=== PATIENT | female | born 1935 | race Caucasian/White ===

== ENCOUNTER 2017-09-23 11:48 | Emergency (ER) | payer OTHER ==
[~2017-09-23] VITALS: Ht 154.9 cm; Wt 75.6 kg
[2017-09-23 11:56] VITALS: BP 122/57; PULSE 54; RESP 18; TEMP 97.9; O2SAT 96
[2017-09-23] MEDS ORDERED: SODIUM CHLOR 0.9% 1000 ML INJ 1,000 ML IV ONE (12:15)
[2017-09-23] MEDS ORDERED: SODIUM CHLORIDE 0.9% FLUSH 10 ML FLUSH IVF PRN (12:15)
[2017-09-23] MEDS ORDERED: ATOR20TA15 PO (12:25)
[2017-09-23] MEDS ORDERED: PROP40TA3 PO (12:25)
[2017-09-23] MEDS ORDERED: AMLO10TA2 PO (12:25)
[2017-09-23] MEDS ORDERED: METF500T PO (12:25)
[2017-09-23] MEDS ORDERED: ESCI10TA PO (12:25)
[2017-09-23] MEDS ORDERED: GABA600T PO (12:25)
[2017-09-23] MEDS ORDERED: LISI10TA3 PO (12:25)
[2017-09-23] MEDS ORDERED: LABE200T2 PO (12:25)
[2017-09-23] MEDS ORDERED: ALEN1TAB48 PO (12:25)
[2017-09-23] MEDS ORDERED: ASPI1TAB57 PO (12:26)
[2017-09-23] MEDS ORDERED: BIOTCAP PO (12:26)
[2017-09-23] MEDS ORDERED: VITA100064 PO (12:26)
[2017-09-23 12:30] VITALS: RESP 16; O2SAT 93
--- NOTE | 2017-09-23 12:33 | PD ---
HPI Chief Complaint: Dizziness Time Seen by Provider: 12:05 Travel History International Travel<30 days: No Contact w/Intl Traveler<30days: No Traveled to known affect area: No History of Present Illness HPI The patient is a 82-year-old female who presents to the emergency department via private vehicle for dizziness. The patient has an intermittent history of dizziness for the last 2 weeks. The patient states she will drift to the left, had difficulty keeping her balance, and has a hold onto objects to stop from falling. The patient does note it is intermittent, but she will always drift to left occasionally has difficulty walking in a straight line secondary to her dizziness and drift. She denies any focal deficits of the upper or lower extremities, denies any vision changes, dysarthria, numbness, tingling, or headache. The patient denies any previous history of CVA or TIA. She denies any history of CAD or PVD. She does have a history of hypertension, hyperlipidemia, and diabetes. She denies any tobacco use. The patient's symptoms are moderate, occasionally worse when ambulating, and intermittent. PFSH Past Medical History High Cholesterol: Yes Diabetes: Yes Patient Takes Glucophage: Yes Diminished Hearing: No Hypertension: Yes Tetanus Vaccination: Unknown ?: Not Past Surgical History Hysterectomy: Yes Other Surgery: Yes (LUMBAR AND CERVICAL LAMINECTOMY) Social History Alcohol Use: No Tobacco Use: No Substance Use: No Allergies-Medications (Allergen,Severity, Reaction): Coded Allergies: No Known Allergies (Unverified , 09/23/17) Reported Meds & Prescriptions Reported Meds & Active Scripts Active Reported Vitamin D3 (Cholecalciferol) 1,000 Unit Tab 1,000 Units PO DAILY Biotin 5 Mg Cap Unknown Dose PO DAILY Aspirin 81 (Aspirin) 81 Mg Tabdr 81 Mg PO DAILY Alendronate (Alendronate Sodium) 70 Mg Tab 70 Mg PO Q7D Lisinopril 10 Mg Tab 10 Mg PO DAILY Escitalopram (Escitalopram Oxalate) 10 Mg Tab 10 Mg PO DAILY Amlodipine (Amlodipine Besylate) 10 Mg Tab 10 Mg PO DAILY Propranolol (Propranolol HCl) 40 Mg Tab 40 Mg PO Q12HR Gabapentin 600 Mg Tab 600 Mg PO BID Metformin (Metformin HCl) 500 Mg Tab 500 Mg PO DAILY With a meal Atorvastatin (Atorvastatin Calcium) 20 Mg Tab 20 Mg PO HS Labetalol (Labetalol HCl) 200 Mg Tab 200 Mg PO BID Review of Systems Except as stated in HPI: all other systems reviewed are Neg General / Constitutional: No: Fever HENT: Positive: Lightheadedness, No: Vertigo Cardiovascular: No: Chest Pain or Discomfort Respiratory: No: Shortness of Breath Gastrointestinal: No: Nausea, Vomiting Neurologic: Positive: Dizziness, Coordination Problem, Ataxia, No: Focal Abnormalities, Headache, Change in Mentation, Slurred Speech, Paresthesia, Sensory Disturbance Physical Exam Narrative GENERAL: Awake, alert, pleasant 82-year-old female who appears her stated age and is in no acute respiratory distress. SKIN: Focused skin assessment warm/dry. HEAD: Atraumatic. Normocephalic. EYES: Pupils equal and round. Pupils are 3 mm bilateral and reactive. EOMs are intact. Patient is able to see fingers at a distance of 2 feet without difficulty. ENT: No nasal bleeding or discharge. Mucous membranes pink and moist. NECK: Trachea midline. No JVD. CARDIOVASCULAR: Regular, bradycardic with a heart rate in the 50s. No audible murmur. RESPIRATORY: No accessory muscle use. Clear to auscultation. Breath sounds equal bilaterally. GASTROINTESTINAL: Abdomen soft, non-tender, nondistended. No rebound tenderness. MUSCULOSKELETAL: No obvious deformities. No clubbing. No cyanosis. No edema. NEUROLOGICAL: Awake and alert. No obvious cranial nerve deficits. Motor grossly within normal limits. Normal speech. No drift of the upper or lower extremities. Finger to nose is normal. [id number] is normal. Patient's symptoms see fingers at a distance of 2 feet without difficulty. She is alert and oriented 3. NIHSS 0. PSYCHIATRIC: Appropriate mood and affect; insight and judgment normal. Data Data Last Documented VS Vital Signs Date Time Temp Pulse Resp B/P (MAP) Pulse Ox O2 Delivery O2 Flow Rate FiO2 09/23/17 14:00 50 16 114/58 (76) 96 Room Air 09/23/17 12:39 97.9 Orders Orders Electrocardiogram (09/23/17 12:15) Complete Blood Count With Diff (09/23/17 12:15) Comprehensive Metabolic Panel (09/23/17 12:15) Magnesium (Mg) (09/23/17 12:15) Ct Brain W/O Iv Contrast(Rout) (09/23/17 12:15) Ecg Monitoring (09/23/17 12:15) Iv Access Insert/Monitor (09/23/17 12:15) Oximetry (09/23/17 12:15) Sodium Chloride 0.9% Flush (Ns Flush) (09/23/17 12:15) Sodium Chlor 0.9% 1000 Ml Inj (Ns 1000 M (09/23/17 12:15) Mri Brain W/O Contrast (09/23/17 ) Clopidogrel (Plavix) (09/23/17 16:30) Labs Laboratory Tests Test 09/23/17 12:30 White Blood Count 8.7 TH/MM3 Red Blood Count 3.63 MIL/MM3 Hemoglobin 10.8 GM/DL Hematocrit 32.8 % Mean Corpuscular Volume 90.4 FL Mean Corpuscular Hemoglobin 29.8 PG Mean Corpuscular Hemoglobin Concent 33.0 % Red Cell Distribution Width 12.8 % Platelet Count 185 TH/MM3 Mean Platelet Volume 7.7 FL Neutrophils (%) (Auto) 66.4 % Lymphocytes (%) (Auto) 22.3 % Monocytes (%) (Auto) 6.8 % Eosinophils (%) (Auto) 1.3 % Basophils (%) (Auto) 3.2 % Neutrophils # (Auto) 5.8 TH/MM3 Lymphocytes # (Auto) 1.9 TH/MM3 Monocytes # (Auto) 0.6 TH/MM3 Eosinophils # (Auto) 0.1 TH/MM3 Basophils # (Auto) 0.3 TH/MM3 CBC Comment AUTO DIFF Differential Comment AUTO DIFF CONFIRMED Blood Urea Nitrogen 35 MG/DL Creatinine 1.70 MG/DL Random Glucose 137 MG/DL Total Protein 6.5 GM/DL Albumin 3.6 GM/DL Calcium Level 8.3 MG/DL Magnesium Level 2.2 MG/DL Alkaline Phosphatase 78 U/L Aspartate Amino Transf (AST/SGOT) 15 U/L Alanine Aminotransferase (ALT/SGPT) 30 U/L Total Bilirubin 0.5 MG/DL Sodium Level 141 MEQ/L Potassium Level 4.4 MEQ/L Chloride Level 109 MEQ/L Carbon Dioxide Level 25.0 MEQ/L Anion Gap 7 MEQ/L Estimat Glomerular Filtration Rate 29 ML/MIN [facility] Medical Decision Making Medical Screen Exam Complete: Yes Emergency Medical Condition: Yes Medical Record Reviewed: Yes Interpretation(s) EKG reveals sinus bradycardia with a heart rate of 49. No ischemic changes noted. Laboratory Tests Test 09/23/17 12:30 White Blood Count 8.7 TH/MM3 Red Blood Count 3.63 MIL/MM3 Hemoglobin 10.8 GM/DL Hematocrit 32.8 % Mean Corpuscular Volume 90.4 FL Mean Corpuscular Hemoglobin 29.8 PG Mean Corpuscular Hemoglobin Concent 33.0 % Red Cell Distribution Width 12.8 % Platelet Count 185 TH/MM3 Mean Platelet Volume 7.7 FL Neutrophils (%) (Auto) 66.4 % Lymphocytes (%) (Auto) 22.3 % Monocytes (%) (Auto) 6.8 % Eosinophils (%) (Auto) 1.3 % Basophils (%) (Auto) 3.2 % Neutrophils # (Auto) 5.8 TH/MM3 Lymphocytes # (Auto) 1.9 TH/MM3 Monocytes # (Auto) 0.6 TH/MM3 Eosinophils # (Auto) 0.1 TH/MM3 Basophils # (Auto) 0.3 TH/MM3 CBC Comment AUTO DIFF Differential Comment AUTO DIFF CONFIRMED Blood Urea Nitrogen 35 MG/DL Creatinine 1.70 MG/DL Random Glucose 137 MG/DL Total Protein 6.5 GM/DL Albumin 3.6 GM/DL Calcium Level 8.3 MG/DL Magnesium Level 2.2 MG/DL Alkaline Phosphatase 78 U/L Aspartate Amino Transf (AST/SGOT) 15 U/L Alanine Aminotransferase (ALT/SGPT) 30 U/L Total Bilirubin 0.5 MG/DL Sodium Level 141 MEQ/L Potassium Level 4.4 MEQ/L Chloride Level 109 MEQ/L Carbon Dioxide Level 25.0 MEQ/L Anion Gap 7 MEQ/L Estimat Glomerular Filtration Rate 29 ML/MIN Last Impressions Head CT 09/23/17 1215 Signed Impressions: Service Date/Time: September 12:41 - CONCLUSION: 1. No acute intracranial abnormality. 2. Minimal subcortical white matter small vessel ischemic changes within the right frontal lobe. Goldy Dutton MD MRI the brain without contrast reveals chronic ischemic small vessel vasculopathy. Small central area of restricted diffusion in the midbrain of uncertain etiology, likely artifactual. Follow-up studies may be warranted. Differential Diagnosis Differential diagnosis includes CVA, TIA, cerebellar infarct, intracranial hemorrhage, hyponatremia, Parkinson's disease, medication side effect, labyrinthitis, Mnire's disease. Narrative Course IV was established, labs are drawn and sent, and the patient was placed on cardiac telemetry monitoring and continuous pulse oximetry monitoring. EKG was ordered and interpreted. Stat CT brain was ordered to rule out hemorrhage. MRI the brain was ordered to rule out cerebellar infarct. Laboratory evaluation is essentially unremarkable. CT the brain is negative for acute hemorrhage. MRI the brain without contrast reveals chronic ischemic small vessel vasculopathy a small central area of restricted diffusion in the midbrain of uncertain etiology, likely artifactual. Follow-up studies may be warranted. Therefore, I'll call was placed to the on-call neurologist, Dr. Jose Disla, at 3:44 PM. Diagnosis Primary Impression: Ataxia Referrals: Jose Disla PhD MD Call in the morning to be seen by Dr. Jose Disla in the [facility] office tomorrow , call [phone], addresses [address] [facility] Patient Instructions: General Instructions Additional Instructions: Plavix as directed. Follow-up with Dr. Disla in the morning at his [facility] office, call [phone]. Please provide the patient a copy of her MRI results, CT results, and lab results at discharge. Med/Other Pt SpecificInfo: Prescription(s) given Scripts Clopidogrel (Plavix) 75 Mg Tab 75 MG PO DAILY for Blood Clot Prevention, #30 TAB 0 Refills Prov: Yordan Zarate MD 09/23/17 Disposition: 01 DISCHARGE HOME Condition: Stable Yordan Zarate MD Sep 23, 2017 12:33
[2017-09-23 12:39] VITALS: PULSE 54; RESP 16; TEMP 97.9; O2SAT 96
[2017-09-23 12:42] LABS: AUTOMATED NEUTROPHIL # 5.8 TH/MM3 (1.8-7.7); BASOPHIL # 0.3 TH/MM3 (0-0.2); BASOPHIL % 3.2 % (0.0-2.0); EOSINOPHIL # 0.1 TH/MM3 (0-0.4); EOSINOPHIL % 1.3 % (0.0-4.0); HEMATOCRIT 32.8 % (35.0-46.0); LYMPH % 22.3 % (9.0-44.0); LYMPHOCYTE # 1.9 TH/MM3 (1.0-4.8); MEAN CELL VOLUME 90.4 FL (80.0-100.0); MEAN CORPUSCULAR HEMOGLOBIN 29.8 PG (27.0-34.0); MONO % 6.8 % (0.0-8.0); NEUT % 66.4 % (16.0-70.0); PLATELET COUNT 185 TH/MM3 (150-450); RED BLOOD COUNT 3.63 MIL/MM3 (4.00-5.30); RED CELL DISTRIBUTION WIDTH 12.8 % (11.6-17.2); WHITE BLOOD COUNT 8.7 TH/MM3 (4.0-11.0)
[2017-09-23 12:45] LABS: HEMO FLAGS AUTO DIFF
[2017-09-23 12:55] VITALS: BP 123/64; PULSE 51; RESP 16; O2SAT 94
[2017-09-23 12:57] LABS: CHLORIDE 109 MEQ/L (98-107); POTASSIUM 4.4 MEQ/L (3.5-5.1); SODIUM (NA) 141 MEQ/L (136-145)
[2017-09-23 13:01] LABS: ANION GAP 7 MEQ/L (5-15); BLOOD UREA NITROGEN 35 MG/DL (7-18); MAGNESIUM 2.2 MG/DL (1.5-2.5)
[2017-09-23 13:04] LABS: ALT (GPT) 30 U/L (10-53); AST (GOT) 15 U/L (15-37); GLOMERULAR FILTRATION RATE 29 ML/MIN (>89)
[2017-09-23 13:05] LABS: TOTAL BILIRUBIN ADULT 0.5 MG/DL (0.2-1.0)
[2017-09-23 13:07] LABS: ALKALINE PHOSPHATASE 78 U/L (45-117)
--- NOTE | 2017-09-23 13:29 | RADRPT ---
EXAM DATE/TIME: 09/23/2017 12:41 [facility] COMPARISON: No previous studies available for comparison. INDICATIONS : Dizziness x 2 weeks. Cephalgia. RADIATION DOSE: 60.56 CTDIvol (mGy) MEDICAL HISTORY : Hypertension. Diabetes mellitus type 2. SURGICAL HISTORY : Hysterectomy. ENCOUNTER: Initial ACUITY: 2 weeks PAIN SCALE: 7/10 LOCATION: cranial TECHNIQUE: Multiple contiguous axial images were obtained of the head. Using automated exposure control and adj ustment of the mA and/or kV according to patient size, radiation dose was kept as low as reasonably a chievable to obtain optimal diagnostic quality images. DICOM format image data is available electro nically for review and comparison. FINDINGS: CEREBRUM: The ventricles are normal for age. No evidence of midline shift, mass lesion, hemorrhage or acute in farction. Minimal subcortical white matter small vessel ischemic changes within the right frontal lo be. No extra-axial fluid collections are seen. POSTERIOR FOSSA: The cerebellum and brainstem are intact. The 4th ventricle is midline. The cerebellopontine angle i s unremarkable. EXTRACRANIAL: The visualized portion of the orbits is intact. SKULL: The calvaria is intact. No evidence of skull fracture. CONCLUSION: 1. No acute intracranial abnormality. 2. Minimal subcortical white matter small vessel ischemic changes within the right frontal lobe. Goldy Dutton MD on September 23, 2017 at 13:25 Board Certified Radiologist. This report was verified electronically.
[2017-09-23 13:54] LABS: SCAN/DIFF AUTO DIFF CONFIRMED
[2017-09-23 14:00] VITALS: BP 114/58; PULSE 50; RESP 16; O2SAT 96
--- NOTE | 2017-09-23 15:42 | RADRPT ---
EXAM DATE/TIME: 09/23/2017 15:33 [facility] COMPARISON: CT BRAIN W/O CONTRAST, September 23, 2017, 12:41. INDICATIONS : CVA. Dizziness and disorientation. MEDICAL HISTORY : Hypertension. Diabetes mellitus type 2. SURGICAL HISTORY : Hysterectomy. Tonsillectomy. Laminectomy. ENCOUNTER: Initial ACUITY: 1 day PAIN SCORE: 0/10 LOCATION: Head. TECHNIQUE: Multiplanar, multisequence MRI of the brain was performed without contrast. FINDINGS: CEREBRUM: The ventricles are normal for age. No evidence of midline shift, mass lesion, hemorrhage or acute in farction. No extraaxial fluid collections are seen. The pituitary gland and suprasellar cistern are normal in configuration. WHITE MATTER: Scattered foci of bright T2 signal abnormalities are seen in the white matter. POSTERIOR FOSSA: The cerebellum and brainstem are intact. The 4th ventricle is midline. The cerebellopontine angle is unremarkable. The cerebellar tonsils are normal in position. DIFFUSION IMAGING: Small central restricted diffusion seen within the midbrain, of uncertain etiology. EXTRACRANIAL: The visualized portions of the orbits and paranasal sinuses are unremarkable. CONCLUSION: 1. Chronic ischemic small vessel vasculopathy. 2. Small central area of restricted diffusion in the midbrain of uncertain etiology, likely artifactu al. Followup studies may be warranted. Poncho Kan MD on September 23, 2017 at 15:34 Board Certified Radiologist. This report was verified electronically.
[2017-09-23] MEDS ORDERED: CLOPIDOGREL 75 MG TAB PO ONE (16:30)
[2017-09-23] MEDS ORDERED: PLAV75TA29 PO (16:41)
[2017-09-23 16:50] VITALS: BP 108/71
--- NOTE | 2017-09-24 12:13 | EKG ---
Date Performed: 09/23/2017 Time Performed: 12:26:54 PTAGE: 82 years EKG: SINUS BRADYCARDIA BORDERLINE ECG NO PREVIOUS TRACING DOCTOR: Gasper Rios Interpretating Date/Time 09/24/2017 12:09:05
== END 2017-09-23 17:05 | disposition home or self-care (01) ==
LOC: PHED 11:48
DX: R27.0 Ataxia, unspecified (principal); E11.9 Type 2 diabetes mellitus without complications; E78.00 Pure hypercholesterolemia, unspecified; I10 Essential (primary) hypertension; Z79.84 Long term (current) use of oral hypoglycemic drugs; Z79.899 Other long term (current) drug therapy
CPT/HCPCS: 70450; 70551; 80053; 83735; 85025; 93005; 96360; 96361; 99285; J7030